=== PATIENT | male | born 1970 | race Two or more races ===

== ENCOUNTER 2021-01-21 17:28 | Inpatient (IN) | payer OTHER ==
[2021-01-21] MEDS ORDERED: LACTATED RINGERS SOLUTION 1000 ML INFUS.BAG IV ONE (18:24)
[2021-01-21] MEDS ORDERED: ONDANSETRON 4 MG/2 ML VIAL IVPUSH PRN (18:24)
[2021-01-21] MEDS ORDERED: FAMOTIDINE 20 MG/50 ML IVPB 20 MG/50 ML MG IVPB ONE ×2 (18:24→18:30)
[2021-01-21] MEDS ORDERED: diazePAM CARPU-JECT 10 MG/2 ML DISP.SYRIN IVPUSH ONE (18:26)
[2021-01-21 18:27] VITALS: BMI 28.8
[2021-01-21] MEDS ORDERED: diazePAM CARPU-JECT 10 MG/2 ML DISP.SYRIN ONE (18:53)
[2021-01-21 19:21] LABS: BASO % 0.8 % (0-2.0); HEMATOCRIT 41.8 % (35.4-49); HEMOGLOBIN 14.4 GM/dL (11.7-16.9); LYMPH % 10.9 % (8-40); MCH 34.1 pg (25.7-33.7); MCHC 34.4 g/dl (32.0-35.9); MEAN CELL VOLUME 99.1 fl (80-96); MEAN PLT VOLUME 9.4 fl (7.5-11.1); MONO % 2.8 % (3.8-10.2); NEUT % 85.5 % (42.8-82.8); PLATELET COUNT 110 K/MM3 (134-434); RBC 4.21 M/mm3 (4.00-5.60); RDW 15.9 % (11.9-15.9); WHITE BLOOD COUNT 3.5 K/mm3 (4.0-10.0)
[2021-01-21 19:32] LABS: CALCIUM 8.7 mg/dL (8.5-10.1)
[2021-01-21 19:33] LABS: ALBUMIN 3.6 g/dl (3.4-5.0)
[2021-01-21 19:37] LABS: TOT PROT 7.2 g/dl (6.4-8.2)
[2021-01-21 19:38] LABS: BILIRUBIN,TOTAL 1.1 mg/dL (0.2-1)
[2021-01-21 20:42] LABS: ANISOCYTOSIS 1+; MACROCYTOSIS 0; PLATELET ESTIMATE DECREASED
[2021-01-21] MEDS ORDERED: MAG HYDROX/AL HYDROX/SIMETH -MYLANTA- ORAL SUSPENSION PO ONE (20:44)
[2021-01-21] MEDS ORDERED: MAG HYDROX/AL HYDROX/SIMETH 30 ML UNIT-DOSE CUP ONE (20:53)
[2021-01-21] MEDS ORDERED: SODIUM CHLORIDE 0.9% 500 ML INFUS.BAG IV ONE (21:05)
[2021-01-21] MEDS ORDERED: chlordiazePOXIDE HCL 25 MG CAPSULE PO ONE (22:39)
[2021-01-21] MEDS ORDERED: chlordiazePOXIDE HCL 25 MG CAPSULE ONE (23:10)
[2021-01-21] MEDS ORDERED: FOLIC ACID INJECTION - 1 MG, THIAMINE HCL 100 MG, MULTIVIT INJECTION ADULT 10 ML in SOD... IVPB ONE (23:28)
[2021-01-21] MEDS: LACTATED RINGERS SOLUTION 1,000 ML IV SCH (23:41)
[2021-01-22] MEDS ORDERED: LORazepam 1 MG TABLET ONE ×2 (05:04→10:59)
[2021-01-22] MEDS: LORazepam 2 MG TABLET PO SCH ×3 (05:12→17:57)
[2021-01-22 05:42] LABS: BASO % 0.7 % (0-2.0); EOS % 0.2 % (0-4.5); HEMOGLOBIN 12.3 GM/dL (11.7-16.9); LYMPH % 22.7 % (8-40); MCH 34.6 pg (25.7-33.7); MCHC 35.2 g/dl (32.0-35.9); MEAN CELL VOLUME 98.4 fl (80-96); MEAN PLT VOLUME 8.1 fl (7.5-11.1); NEUT % 65.4 % (42.8-82.8); PLATELET COUNT 83 K/MM3 (134-434); RBC 3.55 M/mm3 (4.00-5.60); RDW 15.1 % (11.9-15.9); WHITE BLOOD COUNT 4.7 K/mm3 (4.0-10.0)
[2021-01-22 05:55] LABS: INR 1.07 (0.83-1.09); PROTHROMBIN TIME (PATIENT) 13.1 SEC (9.7-13.0)
[2021-01-22 05:57] LABS: ACTIVATED PTT 33.7 SECONDS (25.2-36.5)
[2021-01-22] MEDS ORDERED: LORazepam 1 MG TABLET PO PRN (06:00)
[2021-01-22 06:10] LABS: CHLORIDE 101 mmol/L (98-107); SODIUM 137 mmol/L (136-145)
[2021-01-22 06:13] LABS: ANION GAP 6 MMOL/L (8-16); BLOOD UREA NITROGEN 9.8 mg/dL (7-18); CO2 29 mmol/L (21-32); GLUCOSE,RANDOM 92 mg/dL (74-106); MAGNESIUM 1.3 mg/dL (1.8-2.4)
[2021-01-22 06:15] LABS: SGPT/ALT 39 U/L (13-61)
[2021-01-22 06:16] LABS: CREATININE 0.8 mg/dL (0.55-1.3); PHOSPHOROUS 2.4 mg/dL (2.5-4.9); SGOT/AST 109 U/L (15-37)
[2021-01-22 06:17] LABS: BILIRUBIN,TOTAL 1.6 mg/dL (0.2-1); TOT PROT 5.8 g/dl (6.4-8.2)
[2021-01-22 06:20] LABS: ALK PHOS 114 U/L (45-117); CALCIUM 7.2 mg/dL (8.5-10.1)
[2021-01-22] MEDS ORDERED: ACETAMINOPHEN 1000 MG/100 ML VIAL (NON FORMULARY) IVPB ONE (08:19)
[2021-01-22] MEDS ORDERED: ACETAMINOPHEN INJECTION 100 ML IVPB ONE (08:21)
[2021-01-22 08:53] LABS: LIPASE 501 U/L (73-393)
[2021-01-22] MEDS ORDERED: PANTOPRAZOLE 40 MG TABLET ONE (09:58)
[2021-01-22] MEDS ORDERED: ENOXAPARIN NA (PORCINE) 40 MG/0.4 ML DISP.SYRIN SQ ONE (09:58)
[2021-01-22] MEDS ORDERED: ENOXAPARIN NA (PORCINE) 40 MG/0.4 ML DISP.SYRIN SQ SCH (10:00)
[2021-01-22] MEDS ORDERED: PANTOPRAZOLE 40 MG TABLET PO SCH (10:00)
[2021-01-22 10:07] LABS: HIV INTERPRETATION NEGATIVE (NEGATIVE)
[2021-01-22 13:45] LABS: COCAINE, UR NEGATIVE ng/ml (CUTOFF=300); METHADONE, UR NEGATIVE ng/ml (CUTOFF=300); OPIATES, URI NEGATIVE ng/ml (CUTOFF=300); PHENCYCLIDINE,URINE NEGATIVE ng/ml (CUTOFF=25)
[2021-01-22 13:46] LABS: URINE AMPHETAMINES NEGATIVE ng/ml (CUTOFF=500)
[2021-01-22 13:47] LABS: URINE BARBITURATES NEGATIVE ng/ml (CUTOFF=200)
[2021-01-22 13:48] LABS: URINE BENZODIAZEPINES POSITIVE ng/ml (CUTOFF=200)
[2021-01-22] MEDS ORDERED: LORazepam 1 MG TABLET PO SCH (17:32)
[2021-01-22] MEDS: LORazepam 1 MG TABLET PO SCH ×2 (17:45→22:19)
[2021-01-22] MEDS: LACTATED RINGERS SOLUTION 1,000 ML IV SCH ×2 (22:17→23:30)
[2021-01-23] MEDS ORDERED: LORazepam 1 MG TABLET PO SCH (05:00)
[2021-01-23 06:36] VITALS: BP 123/74; PULSE 73; TEMP 98.9
[2021-01-23] MEDS ORDERED: MULTIVITAMINS (DAILY MVI) TABLET (FP) PO SCH (10:00)
[2021-01-23] MEDS ORDERED: THIAMINE HCL 100 MG TABLET (FP) PO SCH (10:00)
[2021-01-23] MEDS ORDERED: FOLIC ACID 1 MG TABLET (FP) PO SCH (10:00)
[2021-01-24] MEDS ORDERED: LORazepam 0.5 MG TABLET PO PRN
[2021-01-24] MEDS ORDERED: LORazepam 0.5 MG TABLET PO SCH (05:00)
[2021-01-24 23:08] LABS: HEP B CORE AB, TOT Negative (Negative)
[2021-01-25] MEDS ORDERED: LORazepam 0.5 MG TABLET PO ONE (05:00)
== END 2021-01-23 10:07 | disposition left against medical advice (07) | DRG 280 ==
LOC: JER 17:28 → JERBED 22:48 → J5S 01-22 15:45
PROVIDERS: ADMIT Hospitalist; ATTEND Student in an Organized Health Care Education/Training Program
PROC: HZ2ZZZZ Detoxification Services for Substance Abuse Treatment (ICD-10-PCS; principal; 2021-01-21)
DX: K70.10 Alcoholic hepatitis without ascites (principal); K85.90 Acute pancreatitis without necrosis or infection, unspecified; F10.239 Alcohol dependence with withdrawal, unspecified; D72.819 Decreased white blood cell count, unspecified; R74.01 Elevation of levels of liver transaminase levels; R10.13 Epigastric pain; D69.6 Thrombocytopenia, unspecified; R11.2 Nausea with vomiting, unspecified; K29.20 Alcoholic gastritis without bleeding; K76.0 Fatty (change of) liver, not elsewhere classified
CPT/HCPCS: 36415; 71045-TC-FY; 74177-TC; 80053; 80307; 82607; 82746; 83690; 83735; 84100; 84443; 85025; 85610; 85730; 86704; 86706; 86707; 86708; 86709; 87340; 87389; 87902; 93005; 93010; 99285-25; C9803; J0131; Q9967; U0003; U0005

== ENCOUNTER 2021-02-16 12:37 | Inpatient (IN) | payer OTHER ==
[2021-02-16 13:35] VITALS: BMI 18.0
[2021-02-16] MEDS ORDERED: BISMUTH SUBSALICYLATE 524 MG/30 ML PO PRN (14:14)
[2021-02-16] MEDS ORDERED: LORazepam 1 MG TABLET PO PRN (14:14)
[2021-02-16] MEDS ORDERED: MAGNESIUM HYDROX 2400MG/30ML ORAL SUSPENSION 30 ML CUP PO PRN (14:14)
[2021-02-16] MEDS ORDERED: MAGNESIUM CITRATE 300 ML BOTTLE PO PRN (14:14)
[2021-02-16] MEDS ORDERED: ONDANSETRON *ODT* 4 MG TABLET SL PRN (14:14)
[2021-02-16] MEDS ORDERED: ACETAMINOPHEN 325 MG TABLET (FP) PO PRN ×2 (14:14)
[2021-02-16] MEDS ORDERED: MENTHOL/PHENOL 1 EACH UD MM PRN (14:14)
[2021-02-16] MEDS ORDERED: MAG HYDROX/AL HYDROX/SIMETH 30 ML UNIT-DOSE CUP PO PRN (14:14)
[2021-02-16] MEDS: IBUPROFEN 400 MG TABLET (FP) PO PRN (17:41)
[2021-02-16] MEDS: LORazepam 2 MG TABLET PO SCH ×2 (17:42→22:55)
[2021-02-16] MEDS: hydrOXYzine PAMOATE 25 MG CAPSULE (FP) PO SCH ×2 (17:57→22:56)
[2021-02-16] MEDS: MELATONIN 5 MG TABLETS PO SCH (22:56)
[2021-02-16] MEDS: THIAMINE HCL 100 MG TABLET (FP) PO SCH (22:56)
[2021-02-17] MEDS: LORazepam 2 MG TABLET PO SCH ×4 (06:17→22:35)
[2021-02-17] MEDS: hydrOXYzine PAMOATE 25 MG CAPSULE (FP) PO SCH ×5 (06:18→22:37)
[2021-02-17 10:01] LABS: HEMATOCRIT 35.7 % (35.4-49); HEMOGLOBIN 12.4 GM/dL (11.7-16.9); MCH 34.6 pg (25.7-33.7); MCHC 34.8 g/dl (32.0-35.9); MEAN CELL VOLUME 99.3 fl (80-96); MEAN PLT VOLUME 9.6 fl (7.5-11.1); PLATELET COUNT 71 K/MM3 (134-434); RBC 3.59 M/mm3 (4.00-5.60); RDW 13.9 % (11.9-15.9); WHITE BLOOD COUNT 3.2 K/mm3 (4.0-10.0)
[2021-02-17 10:09] LABS: ALBUMIN 4.1 g/dl (3.4-5.0); BLOOD UREA NITROGEN 5.7 mg/dL (7-18); CREATININE 0.9 mg/dL (0.55-1.3)
[2021-02-17 10:11] LABS: BILIRUBIN,TOTAL 1.6 mg/dL (0.2-1); TOT PROT 7.5 g/dl (6.4-8.2)
[2021-02-17] MEDS: PRENATAL VITAMINS W/ FOLIC ACID TABLET (FP) PO SCH (10:40)
[2021-02-17] MEDS: IBUPROFEN 400 MG TABLET (FP) PO PRN (10:43)
[2021-02-17] MEDS: METHOCARBAMOL 500 MG TABLET PO PRN (10:43)
[2021-02-17] MEDS: MELATONIN 5 MG TABLETS PO SCH (22:34)
[2021-02-17] MEDS: THIAMINE HCL 100 MG TABLET (FP) PO SCH (22:34)
[2021-02-17] MEDS: FAMOTIDINE 20 MG TABLET PO SCH (22:34)
[2021-02-18] MEDS: LORazepam 1 MG TABLET PO SCH ×4 (06:07→22:36)
[2021-02-18] MEDS: hydrOXYzine PAMOATE 25 MG CAPSULE (FP) PO SCH ×5 (06:08→22:40)
[2021-02-18 10:39] LABS: ALBUMIN 3.5 g/dl (3.4-5.0)
[2021-02-18 10:42] LABS: BILIRUBIN,DIRECT 0.4 mg/dL (0.0-0.2)
[2021-02-18 10:44] LABS: TOT PROT 6.7 g/dl (6.4-8.2)
[2021-02-18] MEDS: PRENATAL VITAMINS W/ FOLIC ACID TABLET (FP) PO SCH (10:47)
[2021-02-18] MEDS: FAMOTIDINE 20 MG TABLET PO SCH ×2 (10:47→22:36)
[2021-02-18] MEDS: METHOCARBAMOL 500 MG TABLET PO PRN ×2 (10:49→22:45)
[2021-02-18] MEDS: THIAMINE HCL 100 MG TABLET (FP) PO SCH (22:36)
[2021-02-18] MEDS: MELATONIN 5 MG TABLETS PO SCH (22:38)
[2021-02-19] MEDS ORDERED: LORazepam 0.5 MG TABLET PO PRN
[2021-02-19] MEDS: LORazepam 0.5 MG TABLET PO SCH ×4 (06:22→22:09)
[2021-02-19] MEDS: hydrOXYzine PAMOATE 25 MG CAPSULE (FP) PO SCH ×5 (06:22→22:09)
[2021-02-19 09:59] LABS: ALBUMIN 3.5 g/dl (3.4-5.0); CALCIUM 8.9 mg/dL (8.5-10.1)
[2021-02-19 10:00] LABS: BLOOD UREA NITROGEN 8.2 mg/dL (7-18)
[2021-02-19 10:03] LABS: CREATININE 0.7 mg/dL (0.55-1.3)
[2021-02-19 10:04] LABS: BILIRUBIN,TOTAL 0.7 mg/dL (0.2-1); HEMATOCRIT 33.6 % (35.4-49); HEMOGLOBIN 11.7 GM/dL (11.7-16.9); MCH 34.8 pg (25.7-33.7); MCHC 34.8 g/dl (32.0-35.9); MEAN CELL VOLUME 99.9 fl (80-96); MEAN PLT VOLUME 8.7 fl (7.5-11.1); PLATELET COUNT 73 K/MM3 (134-434); RBC 3.36 M/mm3 (4.00-5.60); RDW 13.8 % (11.9-15.9); TOT PROT 6.6 g/dl (6.4-8.2)
[2021-02-19] MEDS: FAMOTIDINE 20 MG TABLET PO SCH ×2 (10:25→22:09)
[2021-02-19] MEDS: PRENATAL VITAMINS W/ FOLIC ACID TABLET (FP) PO SCH (10:25)
[2021-02-19] MEDS: MELATONIN 5 MG TABLETS PO SCH (22:09)
[2021-02-19] MEDS: THIAMINE HCL 100 MG TABLET (FP) PO SCH (22:09)
[2021-02-20] MEDS ORDERED: LORazepam 0.5 MG TABLET PO ONE (05:00)
[2021-02-20] MEDS: hydrOXYzine PAMOATE 25 MG CAPSULE (FP) PO SCH ×2 (05:35→11:16)
[2021-02-20 06:43] VITALS: BP 128/75; PULSE 64; TEMP 99.1
[2021-02-20] MEDS: PRENATAL VITAMINS W/ FOLIC ACID TABLET (FP) PO SCH (11:15)
[2021-02-20] MEDS: FAMOTIDINE 20 MG TABLET PO SCH (11:16)
== END 2021-02-20 11:44 | disposition home or self-care (01) | DRG 775 ==
LOC: YASAS 12:37 → Y6N 14:37
PROVIDERS: ADMIT Allergy & Immunology; ATTEND Allergy & Immunology
PROC: HZ2ZZZZ Detoxification Services for Substance Abuse Treatment (ICD-10-PCS; principal; 2021-02-16)
DX: F10.230 Alcohol dependence with withdrawal, uncomplicated (principal); D69.6 Thrombocytopenia, unspecified; G51.0 Bell's palsy; D64.9 Anemia, unspecified; M17.0 Bilateral primary osteoarthritis of knee; R74.01 Elevation of levels of liver transaminase levels; R74.8 Abnormal levels of other serum enzymes; Z87.19 Personal history of other diseases of the digestive system
CPT/HCPCS: 36415; 80053; 80076; 82962; 85027; 86780; 93005; 93010; C9803; Q0162; U0003; U0005